=== PATIENT | female | born 1995 | race American Indian/Alaskan Native ===

== ENCOUNTER 2019-06-13 14:24 | Observation (INO) | payer OTHER ==
[2019-06-13] MEDS ORDERED: LACTATED RINGERS 1,000 ML IV ONE (14:56)
[2019-06-13 15:30] VITALS: BP 123/76
[2019-06-13] MEDS ORDERED: TERBUTALINE 1 MG/1 ML INJ SUB-Q ONE ×2 (16:00→17:00)
[2019-06-13 16:39] LABS: Basophils % (Auto) 0.3 % (0.0-1.8); Eosinophils # (Auto) 0.1 K/mm3 (0.0-0.4); Eosinophils % (Auto) 0.7 % (0.0-4.3); Hematocrit 31.6 % (30.3-42.9); Hemoglobin 10.7 gm/dl (10.1-14.3); Lymphocytes # (Auto) 2.9 K/mm3 (1.2-5.4); Lymphocytes % (Auto) 26.3 % (13.4-35.0); Mean Corpuscular HGB Conc 34 % (30-34); Mean Corpuscular Volume 95 fl (79-97); Monocytes % (Auto) 9.1 % (0.0-7.3); Platelet Count 164 K/mm3 (140-440); Red Blood Count 3.34 M/mm3 (3.65-5.03); Red Cell Distribution Width 13.2 % (13.2-15.2)
[2019-06-13 16:51] LABS: Alanine Aminotransferase 18 units/L (7-56); Albumin 3.3 g/dL (3.9-5); BUN/Creatinine Ratio 13; Blood Urea Nitrogen 8 mg/dL (7-17); Calcium 8.8 mg/dL (8.4-10.2); Hemolysis Index 30
[2019-06-13 17:57] LABS: Amphetamine Screen,Urine PRESUMPTIVE NEGATIVE; Bacteria,Urine 1+ /HPF (Negative); Benzodiazepines Screen,Urine PRESUMPTIVE NEGATIVE; Bilirubin,Urine NEG (Negative); Blood,Urine NEG (Negative); Cocaine Screen,Urine PRESUMPTIVE NEGATIVE; Color,Urine Straw (Yellow); Methadone Screen,Urine PRESUMPTIVE NEGATIVE; Opiate Screen,Urine PRESUMPTIVE NEGATIVE; Protein,Urine <15 mg/dL mg/dL (Negative); Urobilinogen,Urine < 2.0 mg/dL (<2.0)
--- NOTE | 2019-06-13 17:57 | Ultrasound Report ---
Limited OB Ultrasound 2. Biophysical profile HISTORY: labor. Rule out abruption TECHNIQUE: Grayscale and color Doppler imaging performed. COMPARISON: No recent comparison ultrasound is available FINDINGS: There is a single intrauterine gestation which is cephalic in presentation with anterior pl acenta. Heart rate is up to 163 bpm. Cervix measures approximately 1.7 cm in length and remains close d. The JAIRON is 18. A hypoechoic mass in the uterus most likely represents a fibroid and measures 9.5 c m in maximal dimension. On biophysical profile, the fetus received a score of 2 out of 2 for breathing movement, moveme nt, posture/tone, and JAIRON. Total score was 8 out of 8. On limited abdominal ultrasound, the gallbladder appears unremarkable with no cholelithiasis identifi ed. Visualized portions of the liver appear normal. IMPRESSION: 1. Single viable intrauterine gestation as above. 2. Normal BPP. 3. Large probable uterine fibroid. 4. Unremarkable gallbladder. Signer Name: Kamran Franco MD Signed: 06/13/2019 5:53 PM Workstation Name: [id number]
--- NOTE | 2019-06-13 18:02 | Ultrasound Report ---
ULTRASOUND RENAL INDICATION / CLINICAL INFORMATION: rule out kidney stones. COMPARISON: CT abdomen/pelvis from 11/18/2013 FINDINGS: RIGHT KIDNEY: Length = 12 cm. [normal > 9 cm] - Parenchymal Thickness = 1.9 cm. [normal > 1.5 cm] - Echogenicity: Increased - Hydronephrosis: Mild hydronephrosis. - Cyst or mass: No significant abnormality. - Stones: Nonobstructive calyceal stone in the midpole measuring 4 mm. LEFT KIDNEY: Length = 11 cm. [normal > 9 cm] - Parenchymal Thickness = 2.1 cm. [normal > 1.5 cm] - Echogenicity: Increased - Hydronephrosis: None. - Cyst or mass: 1.2 cm simple cyst in the upper pole. - Stones: None seen. URINARY BLADDER: Collapsed. FREE FLUID: None. ADDITIONAL FINDINGS: None. IMPRESSION: 1. Mild right-sided hydronephrosis and a nonobstructive calyceal stone in the midpole. 2. Both kidneys appear echogenic which is nonspecific but can be seen with medical renal disease. 3. Simple left renal cyst. Signer Name: Kamran Franco MD Signed: 06/13/2019 5:57 PM Workstation Name: [id number]
[2019-06-13 18:09] LABS: Cannabinoid Screen,Urine PRESUMPTIVE POSITIVE
[2019-06-13] MEDS ORDERED: NalbUPHINE 10 MG/1 ML INJ IV STA (18:40)
== END 2019-06-13 19:11 | disposition left against medical advice (07) ==
LOC: TRG 14:24 → LD 18:53
PROVIDERS: ADMIT Obstetrics & Gynecology; ATTEND Obstetrics & Gynecology
DX: O60.00 Preterm labor without delivery, unspecified trimester (principal); Z3A.00 Weeks of gestation of pregnancy not specified; Z87.891 Personal history of nicotine dependence; Z79.899 Other long term (current) drug therapy
CPT/HCPCS: 36415; 59025; 76705; 76770; 76819; 80053; 80307; 81001; 85025; 96372; G0378; J3105; J7120; 96360

== ENCOUNTER 2022-04-24 12:24 | Inpatient (IN) | payer OTHER ==
[2022-04-24 14:15] LABS: Mucus,Urine FEW /HPF
[2022-04-24 14:29] LABS: Amphetamine Screen,Urine Negative; Benzodiazepines Screen,Urine Negative; Cocaine Screen,Urine Negative; Methadone Screen,Urine Negative; Opiate Screen,Urine Negative
[2022-04-24 14:32] LABS: Color,Urine Straw (Yellow); RBC,Urine < 1.0 /HPF (0.0-6.0)
--- NOTE | 2022-04-24 14:34 | Emergency Department Report ---
HPI - General Chief Complaint: Psych PUI?: No Time Seen by Provider: 04/24/22 13:53 - HPI HPI: 26YO F presents for evaluation of SI. Pt states "a few hour ago, I took a handful of tylenol and drank some alcohol to try to end it all. I'm just tired of living. I want to , truly." The patient cannot verify how many tablets of Tylenol she took, whether or not they were regular or extra strength, and she cannot verify what time she took those tablets in addition to what time she took acetaminophen. 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 Pain 0-10 Per charge authorizer, when the pt was initially brought in, she attempted to leave the ER and was retrieved back to the ER by local PD. She states that upon her assessment of the patient, the patient would not answer questions and was very tearful. ED Past Medical Hx - Past Medical History Hx Hypertension: No Hx Diabetes: No Hx Asthma: Yes - Social History Smoking Status: Former Smoker Substance Use Type: Alcohol - Medications Home Medications: Home Medications Medication Instructions Recorded Confirmed Last Taken Type No Known Home Medications [No 11/18/13 11/18/13 Unknown History Reported Home Medications] ED Review of Systems ROS: Stated complaint: PSYCH EVAL,SUICIDE IDEALTION Other details as noted in HPI Comment: All other systems reviewed and negative Physical Exam - Physical Exam General: Gen: pt is well appearing, no acute distress, asleep but easily arousable HEENT: Normocephalic atraumatic pupils equally round and reactive to light extraocular muscles intact sclera anicteric Neck: Full range of motion, no midline spinal tenderness palpation, no JVD, no carotid bruits, no nuchal rigidity CVS: S1-S2 regular rate and rhythm with no gallops rubs or murmurs, chest wall nontender Pulmonary: Clear to auscultation bilaterally, no wheezes rales or rhonchi Abdomen: Soft nondistended nontender no guarding or rebound tenderness, no palpable deformities or step-offs, normal active bowel sounds, no hepatosplenomegaly, no pulsatile masses : Deferred Extremities: No cyanosis no clubbing no edema, intact distal peripheral pulses, Integumentary: Skin normal, no petechia no purpura no abscess no lacerations no evidence of trauma no evidence of infection Neuro: Patient is awake alert and oriented to person place time situation, mentating well, cranial nerves II through XII intact, no focal neurodeficits, sensation grossly tact Psych: Calm cooperative, flat affect, poor eye contact with this provider ED Course - Reevaluation(s) Reevaluation #1: 04/24/22 16:43 pt remains Aox43, mentating well; denies any symptoms Reevaluation #2: 04/24/22 17:34 Patient is comfortable appearing, moving all extremities, mentation unremarkable, - Consultations Consultation #1: 04/24/22 16:44 [place] [facility] called at this time ;Pt's labs have all resulted. I spoke with Gloria. She states she wanted to review the case with the on-call toxicology fellow. She returned my call and stated that given that the patient's AST is elevated and the time of ingestion in the [facility] are unknown, their protocol states that the patient should be started on N-Acetyl cystine. The recommended treatment protocol is listed below. She states that 2 hours prior to the completion of the entire course of treatment, the patient is to have repeat AST ALT acetaminophen and INR. Per her verbal report there is no benefit to rechecking the acetaminophen level prior to then. Goal of AST and ALT are to remain below 100 and not uptrending, and INR is to remain below 1.5 and not uptrending. Same is true for acetaminophen. Treatment protocol below 1. N-Acetyl Cystein, Bag #1: Loading dose of 150 mg/kg in 200 mL administered over 1 hour 2. N-Acetyl Cystein, Bag #2 50mg/kg in 1L administered over 4 hours 3. N-Acetyl Cystein, Bag #3: 100mg/kg in 1L over administered 16 hours If the patient develops changes in her mental status or uptrending of acetaminophen, AST, ALT, or INR levels, please call back poison control. Recommendations noted 04/24/22 17:34 ED Medical Decision Making - Lab Data Result diagrams: 04/24/22 15:12 04/24/22 15:12 - EKG Data -: EKG Interpreted by Me EKG shows normal: sinus rhythm Rate: normal - EKG Data When compared to previous EKG there are: no significant change - Radiology Data Radiology results: report reviewed - Medical Decision Making 26-year-old female presents for evaluation of suicidal ideation in the setting of suicide attempt status post consuming an unknown quantity of acetaminophen as well as alcohol, prior to arrival. Vital signs stable. Per staff, patient has attempted twice to run out of the emergency department. She was repeatedly brought back by police personnel. 1013 form signed. Mental health consult placed. Labs reviewed. Patient has elevated AST and acetaminophen level. Remainder of labs normal. Poison control consulted. Consult advises patient be started on treatment for acetaminophen overdose with N-Acetyl Cysteine, given the patient's elevated a ST and the unclear amount of time and quantity of acetaminophen she took.N-AC ordered. Case reviewed with admitting hospitalist, Dr. Nixon. The patient has been accepted by him for admission to the hospitalist service. Critical Care Time: Yes Critical care time in (mins) excluding proc time.: 30 Critical care attestation.: If time is entered above; I have spent that time in minutes in the direct care of this critically ill patient, excluding procedure time. ED Disposition Clinical Impression: Suicide attempt, Acetaminophen overdose, Alcohol intoxication Disposition: 09 ADMITTED INPATIENT Is pt being admited?: Yes Does the pt Need Aspirin: No Condition: Stable Referrals: PRIMARY CARE, [Primary Care Provider] - 3-5 Days
[2022-04-24 14:43] LABS: Cannabinoid Screen,Urine Positive
[2022-04-24] MEDS ORDERED: NALOXONE 0.4 MG/1 ML INJ ONE (14:56)
[2022-04-24] MEDS ORDERED: ONDANSETRON 4 MG/2 ML INJ ONE (14:56)
[2022-04-24 15:33] LABS: Hematocrit 43.1 % (30.3-42.9); Hemoglobin 14.5 gm/dl (10.1-14.3); Mean Corpuscular HGB Conc 34 % (30-34); Mean Corpuscular Volume 94 fl (79-97); Platelet Count 235 K/mm3 (140-440); Red Blood Count 4.57 M/mm3 (3.65-5.03); Red Cell Distribution Width 14.1 % (13.2-15.2)
[2022-04-24] MEDS ORDERED: ONDANSETRON 4 MG/2 ML INJ IV ONE ×3 (15:33→20:14)
[2022-04-24] MEDS ORDERED: FAMOTIDINE 20 MG/2 ML INJ IV ONE (15:33)
[2022-04-24 16:05] LABS: Alanine Aminotransferase 30 units/L (7-56); Albumin 4.7 g/dL (3.9-5); BUN/Creatinine Ratio 10; Blood Urea Nitrogen 8 mg/dL (7-17); Calcium 9.1 mg/dL (8.4-10.2); Hemolysis Index 9
[2022-04-24 16:45] LABS: Basophils % (Manual) 0 % (0.0-1.8); Total Cells Counted 100
[2022-04-24 16:50] LABS: Platelet Estimate Consistent w Auto; RBC Morphology Normal
[2022-04-24] MEDS ORDERED: WATER IV ONE ×3 (17:04→22:07)
[2022-04-24] MEDS ORDERED: ACETADOTE IV ONE ×3 (17:04→22:07)
[2022-04-24] MEDS ORDERED: DEXTROSE 5% IV ONE ×3 (17:04→22:07)
[2022-04-24 17:59] LABS: INR 0.92 (0.87-1.13)
[2022-04-24 18:00] LABS: Partial Thromboplastin Time 30.3 Sec. (24.2-36.6)
--- NOTE | 2022-04-24 20:43 | History and Physical Report ---
History of Present Illness Date of examination: 04/24/22 Date of admission: 04/24/2022 Chief complaint: And plan Tylenol overdose with suicidal ideation History of present illness: 26YO F presents for evaluation of SI. Pt states "a few hour ago, I took a handful of tylenol and drank some alcohol to try to end it all. I'm just tired of living. I want to , truly." The patient cannot verify how many tablets of Tylenol she took, whether or not they were regular or extra strength, and she cannot verify what time she took those tablets in addition to what time she took acetaminophen. 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 Pain 0-10 Per dry charge process attendant, when the pt was initially brought in, she attempted to leave the ER and was retrieved back to the ER by local PD. She states that upon her assessment of the patient, the patient would not answer questions and was very tearful. - Past Medical History Hx Asthma: Yes - Social History Smoking Status: Former Smoker Substance Use Type: Alcohol - Medications Home Medications: Home Medications Medication Instructions Recorded Confirmed Last Taken Type No Known Home Medications [No 11/18/13 11/18/13 Unknown History Reported Home Medications] Review of Systems ROS: Stated complaint: PSYCH EVAL,SUICIDE IDEALTION Other details as noted in HPI Comment: All other systems reviewed and negative Medications and Allergies Allergies Allergy/AdvReac Type Severity Reaction Status Date / Time kiwi Allergy Rash Verified 04/24/22 12:30 latex Allergy Rash Verified 04/24/22 12:30 Home Medications Medication Instructions Recorded Confirmed Last Taken Type No Known Home Medications [No 11/18/13 11/18/13 Unknown History Reported Home Medications] Active Meds: Active Medications Acetylcysteine 2,948 mg/ (Dextrose) 514.74 mls @ 125 mls/hr IV ONCE ONE Stop: 04/24/22 22:06 Acetylcysteine 5,896 mg/ (Dextrose) 1,029.48 mls @ 62.5 mls/hr IV ONCE ONE Stop: 04/25/22 14:06 Exam - Constitutional Vitals: Temp Pulse Resp BP Pulse Ox 99 F 81 16 114/86 96 04/24/22 14:30 04/24/22 14:30 04/24/22 14:30 04/24/22 14:30 04/24/22 14:30 Results - Labs CBC & Chem 7: 04/25/22 04:53 04/25/22 04:53 Labs: Laboratory Last Values WBC 7.0 K/mm3 (4.5-11.0) 04/24/22 15:12 RBC 4.57 M/mm3 (3.65-5.03) 04/24/22 15:12 Hgb 14.5 gm/dl (10.1-14.3) H 04/24/22 15:12 Hct 43.1 % (30.3-42.9) H 04/24/22 15:12 MCV 94 fl (79-97) 04/24/22 15:12 MCH 32 pg (28-32) 04/24/22 15:12 MCHC 34 % (30-34) 04/24/22 15:12 RDW 14.1 % (13.2-15.2) 04/24/22 15:12 Plt Count 235 K/mm3 (140-440) 04/24/22 15:12 Lymph % (Auto) Motorcycle Subassembly Repairer 04/24/22 15:12 Add Manual Diff Complete 04/24/22 15:12 Total Counted 100 04/24/22 15:12 Seg Neuts % (Manual) 34.0 % (40.0-70.0) L 04/24/22 15:12 Band Neutrophils % 0 % 04/24/22 15:12 Lymphocytes % (Manual) 59.0 % (13.4-35.0) H 04/24/22 15:12 Reactive Lymphs % (Man) 1.0 % 04/24/22 15:12 Monocytes % (Manual) 5.0 % (0.0-7.3) 04/24/22 15:12 Eosinophils % (Manual) 1.0 % (0.0-4.3) 04/24/22 15:12 Basophils % (Manual) 0 % (0.0-1.8) 04/24/22 15:12 Metamyelocytes % 0 % 04/24/22 15:12 Myelocytes % 0 % 04/24/22 15:12 Promyelocytes % 0 % 04/24/22 15:12 Blast Cells % 0 % 04/24/22 15:12 Nucleated RBC % Not Reportable 04/24/22 15:12 Seg Neutrophils # Man 2.4 K/mm3 (1.8-7.7) 04/24/22 15:12 Band Neutrophils # 0.0 K/mm3 04/24/22 15:12 Lymphocytes # (Manual) 4.1 K/mm3 (1.2-5.4) 04/24/22 15:12 Abs React Lymphs (Man) 0.1 K/mm3 04/24/22 15:12 Monocytes # (Manual) 0.4 K/mm3 (0.0-0.8) 04/24/22 15:12 Eosinophils # (Manual) 0.1 K/mm3 (0.0-0.4) 04/24/22 15:12 Basophils # (Manual) 0.0 K/mm3 (0.0-0.1) 04/24/22 15:12 Metamyelocytes # 0.0 K/mm3 04/24/22 15:12 Myelocytes # 0.0 K/mm3 04/24/22 15:12 Promyelocytes # 0.0 K/mm3 04/24/22 15:12 Blast Cells # 0.0 K/mm3 04/24/22 15:12 WBC Morphology Not Reportable 04/24/22 15:12 Hypersegmented Neuts Not Reportable 04/24/22 15:12 Hyposegmented Neuts Not Reportable 04/24/22 15:12 Hypogranular Neuts Not Reportable 04/24/22 15:12 Smudge Cells Not Reportable 04/24/22 15:12 Toxic Granulation Not Reportable 04/24/22 15:12 Toxic Vacuolation Not Reportable 04/24/22 15:12 Dohle Bodies Not Reportable 04/24/22 15:12 Pelger-Huet Anomaly Not Reportable 04/24/22 15:12 Saray Rods Not Reportable 04/24/22 15:12 Platelet Estimate Consistent w auto 04/24/22 15:12 Clumped Platelets Not Reportable 04/24/22 15:12 Plt Clumps, EDTA Not Reportable 04/24/22 15:12 Large Platelets Not Reportable 04/24/22 15:12 Giant Platelets Not Reportable 04/24/22 15:12 Platelet Satelliting Not Reportable 04/24/22 15:12 Plt Morphology Comment Not Reportable 04/24/22 15:12 RBC Morphology Normal 04/24/22 15:12 Dimorphic RBCs Not Reportable 04/24/22 15:12 Polychromasia Not Reportable 04/24/22 15:12 Hypochromasia Not Reportable 04/24/22 15:12 Poikilocytosis Not Reportable 04/24/22 15:12 Anisocytosis Not Reportable 04/24/22 15:12 Microcytosis Not Reportable 04/24/22 15:12 Macrocytosis Not Reportable 04/24/22 15:12 Spherocytes Not Reportable 04/24/22 15:12 Pappenheimer Bodies Not Reportable 04/24/22 15:12 Sickle Cells Not Reportable 04/24/22 15:12 Target Cells Not Reportable 04/24/22 15:12 Tear Drop Cells Not Reportable 04/24/22 15:12 Ovalocytes Not Reportable 04/24/22 15:12 Helmet Cells Not Reportable 04/24/22 15:12 Mcfarland-Sekiu Bodies Not Reportable 04/24/22 15:12 [place] Rings Not Reportable 04/24/22 15:12 Trudy Cells Not Reportable 04/24/22 15:12 Bite Cells Not Reportable 04/24/22 15:12 Crenated Cell Not Reportable 04/24/22 15:12 Elliptocytes Not Reportable 04/24/22 15:12 Acanthocytes (Spur) Not Reportable 04/24/22 15:12 Rouleaux Not Reportable 04/24/22 15:12 Hemoglobin C Crystals Not Reportable 04/24/22 15:12 Schistocytes Not Reportable 04/24/22 15:12 Malaria parasites Not Reportable 04/24/22 15:12 Conrado Bodies Not Reportable 04/24/22 15:12 Hem Pathologist Commnt No 04/24/22 15:12 PT 13.3 Sec. (12.2-14.9) 04/24/22 17:34 INR 0.92 (0.87-1.13) 04/24/22 17:34 APTT 30.3 Sec. (24.2-36.6) 04/24/22 17:34 Sodium 142 mmol/L (137-145) 04/24/22 15:12 Potassium 4.2 mmol/L (3.6-5.0) 04/24/22 15:12 Chloride 106.7 mmol/L (98-107) 04/24/22 15:12 Carbon Dioxide 23 mmol/L (22-30) 04/24/22 15:12 Anion Gap 17 mmol/L 04/24/22 15:12 BUN 8 mg/dL (7-17) 04/24/22 15:12 Creatinine 0.8 mg/dL (0.6-1.2) 04/24/22 15:12 Estimated GFR > 60 ml/min 04/24/22 15:12 BUN/Creatinine Ratio 10 % 04/24/22 15:12 Glucose 104 mg/dL (65-100) H 04/24/22 15:12 Calcium 9.1 mg/dL (8.4-10.2) 04/24/22 15:12 Total Bilirubin 0.40 mg/dL (0.1-1.2) 04/24/22 15:12 AST 62 units/L (5-40) H 04/24/22 15:12 ALT 30 units/L (7-56) 04/24/22 15:12 Alkaline Phosphatase 86 units/L (35-129) 04/24/22 15:12 Total Protein 7.7 g/dL (6.3-8.2) 04/24/22 15:12 Albumin 4.7 g/dL (3.9-5) 04/24/22 15:12 Albumin/Globulin Ratio 1.6 % 04/24/22 15:12 HCG, Qual Negative (Negative) 04/24/22 15:12 Urine Color Straw (Yellow) 04/24/22 12:47 Urine Turbidity Clear (Clear) 04/24/22 12:47 Specific Cut[place] (Man) 1.000 (1.003-1.030) L 04/24/22 12:47 Ur Protein (Man) Negative mg/dL (Negative) 04/24/22 12:47 Ur Ketones (Man) Negative (Negative) 04/24/22 12:47 Ur Nitrite (Man) Negative (Negative) 04/24/22 12:47 Urine Bilirubin (Man) Negative (Negative) 04/24/22 12:47 Leukocyte Esterase (Man) Negative (Negative) 04/24/22 12:47 Urine WBC (Auto) 1.0 /HPF (0.0-6.0) 04/24/22 12:47 Urine RBC (Auto) < 1.0 /HPF (0.0-6.0) 04/24/22 12:47 Urine RBC (Manual) Negative (Negative) 04/24/22 12:47 Urine Mucus Few /HPF 04/24/22 12:47 Salicylates < 0.3 mg/dL (2.8-20.0) L 04/24/22 15:12 Urine Opiates Screen Negative 04/24/22 12:47 Urine Methadone Screen Negative 04/24/22 12:47 Acetaminophen 5.0 ug/mL (10.0-30.0) L 04/24/22 15:12 Ur Barbiturates Screen Negative 04/24/22 12:47 Ur Phencyclidine Scrn Negative 04/24/22 12:47 Ur Amphetamines Screen Negative 04/24/22 12:47 U Benzodiazepines Scrn Negative 04/24/22 12:47 Urine Cocaine Screen Negative 04/24/22 12:47 U Marijuana (THC) Screen Positive 04/24/22 12:47 Drugs of Abuse Note Disclamer 04/24/22 12:47 Plasma/Serum Alcohol 0.32 % (0-0.07) H 04/24/22 15:12 Assessment and Plan Advance Directives: Yes (Full code) VTE prophylaxis?: Chemical Plan of care discussed with patient/family: Yes - Patient Problems (1) Acetaminophen overdose Current Visit: Yes Status: Acute Qualifiers: Encounter type: initial encounter Plan to address problem: Patient states she took a bunch of Tylenol pills. Unable to give a number and dosage Tylenol level in the ER is near normal Antidote was given but may not be necessary We will keep checking thyroid levels Communication with Poison control obtained (2) Suicide attempt Current Visit: Yes Status: Acute Plan to address problem: Mental health consult requested (3) Alcohol intoxication Current Visit: Yes Status: Acute Qualifiers: Complication of substance-induced condition: uncomplicated Qualified Code(s): F10.920 - Alcohol use, unspecified with intoxication, uncomplicated Plan to address problem: Initiated on IV l fluids and CIWA protoco IV fluids IV Protonix (4) Acute gastritis Current Visit: Yes Status: Acute Qualifiers: Gastritis type: alcoholic Plan to address problem: IV Protonix for now (5) Depression Current Visit: Yes Status: Acute Plan to address problem: Severe depression Will defer to mental health/psychiatry for recommendations regarding antidepressants and management of depression (6) Transaminitis Current Visit: Yes Status: Acute Plan to address problem: Mild Check hepatitis profile (7) DVT prophylaxis Current Visit: Yes Status: Acute Plan to address problem: Heparin and GI prophylaxis (8) Advance care planning Current Visit: Yes Status: Acute Plan to address problem: Disease education conducted care plan discussed prognosis discussed and diagnosis this test. Patient is full code. Patient acknowledged understanding with care plan. +30 minutes.
[2022-04-24] MEDS ORDERED: oxyCODONE /ACETAMINOPHEN 5-325MG TAB PO PRN (20:44)
[2022-04-24] MEDS ORDERED: METOCLOPRAMIDE 10 MG/2 ML INJ IV PRN (20:44)
[2022-04-24] MEDS ORDERED: IBUPROFEN 600 MG TAB PO PRN (20:44)
[2022-04-24] MEDS ORDERED: ONDANSETRON 4 MG/2 ML INJ IV PRN ×2 (20:44→20:56)
[2022-04-24] MEDS ORDERED: ACETAMINOPHEN 325 MG TAB PO PRN (20:56)
[2022-04-24] MEDS ORDERED: D5W/0.9% NACL 1,000 ML IV SCH (21:00)
[2022-04-24] MEDS ORDERED: LORazepam 2 MG/ML VIAL IV PRN (21:03)
[2022-04-24] MEDS: HEPARIN 5,000 UNIT/1 ML VIAL SUB-Q SCH (23:43)
[2022-04-25 06:04] LABS: Basophils % (Auto) 0.5 % (0.0-1.8); Eosinophils % (Auto) 0.6 % (0.0-4.3); Hematocrit 40.4 % (30.3-42.9); Hemoglobin 13.4 gm/dl (10.1-14.3); Lymphocytes # (Auto) 2.6 K/mm3 (1.2-5.4); Mean Corpuscular HGB Conc 33 % (30-34); Mean Corpuscular Volume 95 fl (79-97); Monocytes # (Auto) 0.7 K/mm3 (0.0-0.8); Platelet Count 196 K/mm3 (140-440); Red Blood Count 4.27 M/mm3 (3.65-5.03); Red Cell Distribution Width 14.1 % (13.2-15.2)
[2022-04-25 06:23] LABS: Alanine Aminotransferase 27 units/L (7-56); Albumin 4.1 g/dL (3.9-5); Blood Urea Nitrogen 6 mg/dL (7-17); Calcium 8.4 mg/dL (8.4-10.2); Hemolysis Index 16
[2022-04-25 06:28] LABS: BUN/Creatinine Ratio 9
--- NOTE | 2022-04-25 10:39 | Electrocardiograph Report ---
[facility] Test Date: 2022-04-24 Test Time: 20:23:11 Pat Name: RAJI DOYLE Department: Room: A487 1 Gender: F Firewall Administrator: ISELA : 1995 Requested By: SANGEETA LANDERS Order Number: [id number] Reading MD: Jacobo Almazan Measurements Intervals [place] Rate: 61 P: 52 VT: 155 QRS: 35 QRSD: 110 T: 50 QT: 430 QTc: 434 Interpretive Statements Sinus arrhythmia No previous ECG available for comparison Electronically Signed On 04-25-2022 10:39:06 EDT by Jacobo Almazan
[2022-04-25] MEDS: HEPARIN 5,000 UNIT/1 ML VIAL SUB-Q SCH ×2 (11:29→21:45)
--- NOTE | 2022-04-25 11:46 | Consultation ---
History of Present Illness - Reason for Consult Consult date: 04/25/22 Reason for consult: suicide attempt - Chief Complaint Chief complaint: And plan Tylenol overdose with suicidal ideation - History of Present Psychiatric Illness PER NOTE: 26YO F presents for evaluation of SI. Pt states "a few hour ago, I took a handful of tylenol and drank some alcohol to try to end it all. I'm just tired of living. I want to , truly." The patient cannot verify how many tablets of Tylenol she took, whether or not they were regular or extra strength, and she cannot verify what time she took those tablets in addition to what time she took acetaminophen. 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 Pain 0-10 Per chargemaster analyst, when the pt was initially brought in, she attempted to leave the ER and was retrieved back to the ER by local PD. She states that upon her assessment of the patient, the patient would not answer questions and was very tearful. Patient is a 26 year old female with history of bipolar who was consulted for intentional overdose in context of suicide attempt. The patient was seen today. Patient was alert and oriented x3 but was recently administered ativan. The patient reports intentionally overdose on a handful of tylenol with alcohol. Patient reports feeling stressors of being in school, working, and the anniversary of her brother and sister's committing suicide last year. Patient has been prescribed lamictal and seroquel but has been non-compliant with medication. The patient denies any current suicidal thoughts and denies hallucinations. PAST PSYCHIATRIC HISTORY: Diagnoses: Bipolar Suicide attempts or Self-harm behavior: Yes Prior psychiatric hospitalizations: Yes Substance Abuse history: Alcohol Previous psychiatric medications tried: Yes Outpatient treatment: Yes PAST MEDICAL HISTORY: Total hysterectomy 2020 Family Psychiatric History: None reported SOCIAL HISTORY Marital Status: Living Arrangements: Alone Employment Status: Employed Access to guns/weapons: Denies Education: Some college History of Abuse: No Legal History: Denies REVIEW OF SYSTEMS Constitutional: Negative for weight loss ENT: Negative for stridor Respiratory: Negative for cough or hemoptysis All other systems reviewed and are negative MENTAL STATUS General Appearance and Behavior: age appropriate, poor eye contact, cooperative, Cooperation: Cooperative Psychomotor Behavior: within normal limits Mood: Depressed Affect and affective range: Congruent with stated mood Thought Process: goal directed Thought Content: reality oriented Speech: Low volume and slow rate and rhythm Suicidal Ideation: Denies SI Homicidal Ideation: Denies HI Hallucinations: Denies Impulse Control: intact Insight and Judgment: Limited Memory: Normal Attention: Attentive Orientation: alert and oriented x3 Assessment Bipolar, current episode depressive type Treatment Plan 1013 Start home meds: seroquel 25 mg PO TID, lamictal 25 mg PO qd The patient is to get first dose of meds prior to leaving. Benefits and possible SE were explained to patient. She verbalizes understanding. Risks, benefits and alternatives of medications discussed with the patient, questions answered and consent obtained from patient. PSYCHOTHERAPY: Supportive psychotherapy provided MEDICAL: Per primary team DELIRIUM PRECAUTIONS: Please re-orient patient frequently, keep lights on during the day, and minimize benzodiazepines and opiates as these medications could worsen patient's confusion. DOLL WIGS HACKLER: Defer to primary DISPOSITION: Recommend acute inpatient psychiatric hospitalization at this time. FOLLOW-UP: Will follow. Thank you for the consult. Please contact with any questions and/or concerns Case discussed with Dr. Larson who agrees with current disposition Medications and Allergies Allergies Allergy/AdvReac Type Severity Reaction Status Date / Time kiwi Allergy Rash Verified 04/24/22 12:30 latex Allergy Rash Verified 04/24/22 12:30 Home Medications Medication Instructions Recorded Confirmed Last Taken Type No Known Home Medications [No 11/18/13 11/18/13 Unknown History Reported Home Medications] Active Meds: Active Medications Heparin Sodium (Porcine) (Heparin 5,000 Unit/1 Ml Vial) 5,000 unit SUB-Q Q12HR CASSANDRA Last Admin: 04/25/22 11:29 Dose: Not Given Acetylcysteine 5,896 mg/ (Dextrose) 1,029.48 mls @ 62.5 mls/hr IV ONCE ONE Stop: 04/25/22 14:06 Last Admin: 04/25/22 03:21 Dose: 62.5 mls/hr Dextrose/Sodium Chloride (D5ns) 1,000 mls @ 100 mls/hr IV DIRECT CASSANDRA Ibuprofen (Ibuprofen 600 Mg Tab) 600 mg PO Q6H PRN PRN Reason: Pain, Mild (1-3) Lorazepam (Lorazepam 2 Mg/Ml Vial) 2 mg IV Q1H PRN PRN Reason: CIWA-Ar 8-15 Last Admin: 04/25/22 10:22 Dose: 2 mg Metoclopramide HCl (Metoclopramide 10 Mg/2 Ml Inj) 10 mg IV Q6H PRN PRN Reason: Nausea And Vomiting Last Admin: 04/25/22 09:57 Dose: 10 mg Ondansetron HCl (Ondansetron 4 Mg/2 Ml Inj) 4 mg IV Q8H PRN PRN Reason: Nausea And Vomiting Sodium Chloride (Sodium Chloride 0.9% 10 Ml Flush Syringe) 10 ml IV BID CASSANDRA Last Admin: 04/25/22 11:29 Dose: 10 ml Sodium Chloride (Sodium Chloride 0.9% 10 Ml Flush Syringe) 10 ml IV PRN PRN PRN Reason: LINE FLUSH Mental Status Exam - Vital signs Last Vital Signs Temp 97.8 F 04/25/22 10:31 Pulse 53 L 04/25/22 04:33 Resp 16 04/25/22 10:31 BP 143/78 04/25/22 10:31 Pulse Ox 100 04/25/22 04:33 Results Result Diagrams: 04/25/22 04:53 04/25/22 04:53 Abnormal lab results 04/24/22 04/24/22 04/24/22 Range/Units 12:47 15:12 15:12 Hgb (10.1-14.3) gm/dl Hct (30.3-42.9) % Lymph % (Auto) (13.4-35.0) % [place] % (Auto) (0.0-7.3) % Seg Neuts % (Manual) (40.0-70.0) % Lymphocytes % (Manual) (13.4-35.0) % BUN (7-17) mg/dL Glucose 104 H (65-100) mg/dL AST 62 H (5-40) units/L Specific [place] (Man) 1.000 L (1.003-1.030) Salicylates < 0.3 L (2.8-20.0) mg/dL Acetaminophen (10.0-30.0) ug/mL Plasma/Serum Alcohol (0-0.07) % 04/24/22 04/24/22 04/24/22 Range/Units 15:12 15:12 15:12 Hgb 14.5 H (10.1-14.3) gm/dl Hct 43.1 H (30.3-42.9) % Lymph % (Auto) (13.4-35.0) % [place] % (Auto) (0.0-7.3) % Seg Neuts % (Manual) 34.0 L (40.0-70.0) % Lymphocytes % (Manual) 59.0 H (13.4-35.0) % BUN (7-17) mg/dL Glucose (65-100) mg/dL AST (5-40) units/L Specific [place] (Man) (1.003-1.030) Salicylates (2.8-20.0) mg/dL Acetaminophen 5.0 L (10.0-30.0) ug/mL Plasma/Serum Alcohol 0.32 H (0-0.07) % 04/24/22 04/25/22 04/25/22 Range/Units 23:11 04:53 04:53 Hgb (10.1-14.3) gm/dl Hct (30.3-42.9) % Lymph % (Auto) 36.0 H (13.4-35.0) % [place] % (Auto) 9.0 H (0.0-7.3) % Seg Neuts % (Manual) (40.0-70.0) % Lymphocytes % (Manual) (13.4-35.0) % BUN (7-17) mg/dL Glucose (65-100) mg/dL AST (5-40) units/L Specific [place] (Man) (1.003-1.030) Salicylates (2.8-20.0) mg/dL Acetaminophen 5.0 L 5.0 L (10.0-30.0) ug/mL Plasma/Serum Alcohol (0-0.07) % 04/25/22 04/25/22 Range/Units 04:53 07:18 Hgb (10.1-14.3) gm/dl Hct (30.3-42.9) % Lymph % (Auto) (13.4-35.0) % [place] % (Auto) (0.0-7.3) % Seg Neuts % (Manual) (40.0-70.0) % Lymphocytes % (Manual) (13.4-35.0) % BUN 6 L (7-17) mg/dL Glucose (65-100) mg/dL AST 54 H (5-40) units/L Specific [place] (Man) (1.003-1.030) Salicylates (2.8-20.0) mg/dL Acetaminophen 5.0 L (10.0-30.0) ug/mL Plasma/Serum Alcohol (0-0.07) % All other labs normal.
[2022-04-25] MEDS: QUEtiapine 25 MG TAB PO SCH ×2 (16:14→21:45)
[2022-04-25] MEDS: lamoTRIgine 25 MG TAB PO SCH (16:14)
[2022-04-25 23:34] LABS: Alanine Aminotransferase 31 units/L (7-56); BUN/Creatinine Ratio 8; Blood Urea Nitrogen 7 mg/dL (7-17); Calcium 8.9 mg/dL (8.4-10.2); Hemolysis Index 8
[2022-04-26 06:24] LABS: Basophils % (Auto) 0.6 % (0.0-1.8); Eosinophils # (Auto) 0.1 K/mm3 (0.0-0.4); Eosinophils % (Auto) 1.6 % (0.0-4.3); Hematocrit 38.9 % (30.3-42.9); Hemoglobin 12.7 gm/dl (10.1-14.3); Lymphocytes # (Auto) 1.7 K/mm3 (1.2-5.4); Lymphocytes % (Auto) 40.7 % (13.4-35.0); Mean Corpuscular HGB Conc 33 % (30-34); Mean Corpuscular Volume 96 fl (79-97); Monocytes # (Auto) 0.5 K/mm3 (0.0-0.8); Monocytes % (Auto) 11.3 % (0.0-7.3); Platelet Count 172 K/mm3 (140-440); Red Blood Count 4.06 M/mm3 (3.65-5.03); Red Cell Distribution Width 13.4 % (13.2-15.2)
[2022-04-26 06:31] LABS: INR 0.98 (0.87-1.13)
[2022-04-26 06:32] LABS: Partial Thromboplastin Time 30.6 Sec. (24.2-36.6)
[2022-04-26 06:36] LABS: Alanine Aminotransferase 33 units/L (7-56); Blood Urea Nitrogen 6 mg/dL (7-17); Calcium 8.9 mg/dL (8.4-10.2); Hemolysis Index 17
[2022-04-26 06:38] LABS: BUN/Creatinine Ratio 9
--- NOTE | 2022-04-26 10:51 | Electrocardiograph Report ---
[facility] Test Date: 2022-04-25 Test Time: 07:37:30 Pat Name: RAJI DOYLE Department: Room: A487 1 Gender: F Reeling Machine Operator: MAURICE : 1995 Requested By: MC WILLINGHAM Order Number: [id number] Reading MD: Jacobo Almazan Measurements Intervals [place] Rate: 53 P: 52 AL: 142 QRS: 17 QRSD: 102 T: 32 QT: 462 QTc: 435 Interpretive Statements Sinus rhythm Compared to ECG 04/24/2022 20:23:11 Sinus arrhythmia no longer present Electronically Signed On 04-26-2022 10:50:58 EDT by Jacobo Almazan
--- NOTE | 2022-04-26 11:38 | Progress Note ---
Assessment and Plan - Patient Problems (1) Acetaminophen overdose Current Visit: Yes Status: Acute Qualifiers: Encounter type: initial encounter Plan to address problem: Patient states she took a bunch of Tylenol pills. Unable to give a number and dosage Tylenol level in the ER is near normal Antidote was given but may not be necessary We will keep checking thyroid levels Communication with Poison control obtained (2) Suicide attempt Current Visit: Yes Status: Acute Plan to address problem: Mental health consult requested (3) Alcohol intoxication Current Visit: Yes Status: Acute Qualifiers: Complication of substance-induced condition: uncomplicated Qualified Code(s): F10.920 - Alcohol use, unspecified with intoxication, uncomplicated Plan to address problem: Initiated on IV l fluids and CIWA protoco IV fluids IV Protonix (4) Acute gastritis Current Visit: Yes Status: Acute Qualifiers: Gastritis type: alcoholic Plan to address problem: IV Protonix for now (5) Depression Current Visit: Yes Status: Acute Plan to address problem: Severe depression Will defer to mental health/psychiatry for recommendations regarding antidepressants and management of depression (6) Transaminitis Current Visit: Yes Status: Acute Plan to address problem: Mild Check hepatitis profile (7) DVT prophylaxis Current Visit: Yes Status: Acute Plan to address problem: Heparin and GI prophylaxis (8) Advance care planning Current Visit: Yes Status: Acute Plan to address problem: Disease education conducted care plan discussed prognosis discussed and diagnosis this test. Patient is full code. Patient acknowledged understanding with care plan. +30 minutes. Subjective Date of service: 04/25/22 Objective - Constitutional Vitals: Vital Signs - 12hr 04/26/22 04/26/22 04/26/22 00:13 04:53 08:56 Temperature 98.6 F 98.5 F 98.2 F Pulse Rate 67 49 L 94 H Respiratory 20 20 15 Rate Blood Pressure 86/49 84/49 115/76 O2 Sat by Pulse 99 96 98 Oximetry General appearance: Present: no acute distress, well-nourished - EENT Eyes: PERRL, EOM intact ENT: hearing intact, clear oral mucosa Ears: bilateral: normal - Neck Neck: supple, normal ROM - Respiratory Respiratory effort: normal Respiratory: bilateral: CTA - Breasts Breasts: normal - Cardiovascular Rhythm: regular Heart Sounds: Present: S1 & S2. Absent: gallop, rub Extremities: pulses intact, No edema, normal color, Full ROM - Gastrointestinal General gastrointestinal: Present: soft, non-tender, non-distended, normal bowel sounds - Genitourinary Female genitourinary: normal - Integumentary Integumentary: clear, warm, dry - Musculoskeletal Musculoskeletal: 1, strength equal bilaterally - Neurologic Neurologic: moves all extremities - Psychiatric Psychiatric: memory intact, appropriate mood/affect, intact judgment & insight - Labs CBC & Chem 7: 04/26/22 06:03 04/26/22 06:03 Labs: Abnormal lab results 04/25/22 04/25/22 04/26/22 Range/Units 12:57 22:39 06:03 WBC 4.2 L (4.5-11.0) K/mm3 Lymph % (Auto) 40.7 H (13.4-35.0) % [place] % (Auto) 11.3 H (0.0-7.3) % BUN (7-17) mg/dL Glucose 104 H (65-100) mg/dL Total Bilirubin 1.60 H (0.1-1.2) mg/dL AST 79 H (5-40) units/L Acetaminophen 5.0 L (10.0-30.0) ug/mL 04/26/22 Range/Units 06:03 WBC (4.5-11.0) K/mm3 Lymph % (Auto) (13.4-35.0) % [place] % (Auto) (0.0-7.3) % BUN 6 L (7-17) mg/dL Glucose (65-100) mg/dL Total Bilirubin 1.60 H (0.1-1.2) mg/dL AST 80 H (5-40) units/L Acetaminophen (10.0-30.0) ug/mL
[2022-04-26] MEDS: HEPARIN 5,000 UNIT/1 ML VIAL SUB-Q SCH ×2 (11:44→22:37)
[2022-04-26] MEDS: QUEtiapine 25 MG TAB PO SCH ×3 (11:44→22:37)
--- NOTE | 2022-04-26 11:44 | Event Note ---
Date: 04/26/22 Patient is medically cleared for discharge if psych clears
[2022-04-26] MEDS: lamoTRIgine 25 MG TAB PO SCH (11:45)
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
--- NOTE | 2022-04-26 20:08 | Progress Note ---
Assessment and Plan - Patient Problems (1) Acetaminophen overdose Current Visit: Yes Status: Acute Qualifiers: Encounter type: initial encounter Plan to address problem: Patient states she took a bunch of Tylenol pills. Unable to give a number and dosage Tylenol level in the ER is near normal Antidote was given but may not be necessary We will keep checking thyroid levels Communication with Poison control obtained (2) Suicide attempt Current Visit: Yes Status: Acute Plan to address problem: Mental health consult requested (3) Alcohol intoxication Current Visit: Yes Status: Acute Qualifiers: Complication of substance-induced condition: uncomplicated Qualified Code(s): F10.920 - Alcohol use, unspecified with intoxication, uncomplicated (4) Acute gastritis Current Visit: Yes Status: Acute Qualifiers: Gastritis type: alcoholic (5) Depression Current Visit: Yes Status: Acute (6) Transaminitis Current Visit: Yes Status: Acute (7) DVT prophylaxis Current Visit: Yes Status: Acute (8) Advance care planning Current Visit: Yes Status: Acute Subjective Date of service: 04/26/22 Objective - Constitutional Vitals: Vital Signs - 12hr 04/26/22 04/26/22 04/26/22 08:56 09:00 12:31 Temperature 98.2 F 98.8 F Pulse Rate 94 H 61 82 Respiratory 15 20 Rate Blood Pressure 115/76 117/90 O2 Sat by Pulse 98 99 Oximetry 04/26/22 04/26/22 16:18 16:20 Temperature 99.0 F Pulse Rate 77 89 Respiratory 18 Rate Blood Pressure 110/77 O2 Sat by Pulse 100 99 Oximetry General appearance: Present: no acute distress, well-nourished - EENT Eyes: PERRL, EOM intact ENT: hearing intact, clear oral mucosa Ears: bilateral: normal - Neck Neck: supple, normal ROM - Respiratory Respiratory effort: normal Respiratory: bilateral: CTA - Breasts Breasts: normal - Cardiovascular Rhythm: regular Heart Sounds: Present: S1 & S2. Absent: gallop, rub Extremities: pulses intact, No edema, normal color, Full ROM - Gastrointestinal General gastrointestinal: Present: soft, non-tender, non-distended, normal bowel sounds - Genitourinary Female genitourinary: normal - Integumentary Integumentary: clear, warm, dry - Musculoskeletal Musculoskeletal: 1, strength equal bilaterally - Neurologic Neurologic: moves all extremities - Psychiatric Psychiatric: memory intact, appropriate mood/affect, intact judgment & insight - Labs CBC & Chem 7: 04/26/22 06:03 04/26/22 06:03 Labs: Abnormal lab results 04/25/22 04/26/22 04/26/22 Range/Units 22:39 06:03 06:03 WBC 4.2 L (4.5-11.0) K/mm3 Lymph % (Auto) 40.7 H (13.4-35.0) % [place] % (Auto) 11.3 H (0.0-7.3) % BUN 6 L (7-17) mg/dL Glucose 104 H (65-100) mg/dL Total Bilirubin 1.60 H 1.60 H (0.1-1.2) mg/dL AST 79 H 80 H (5-40) units/L
[2022-04-27 08:44] VITALS: BP 106/81
[2022-04-27] MEDS: lamoTRIgine 25 MG TAB PO SCH (10:09)
[2022-04-27] MEDS: HEPARIN 5,000 UNIT/1 ML VIAL SUB-Q SCH (10:09)
[2022-04-27] MEDS: QUEtiapine 25 MG TAB PO SCH ×2 (10:09→13:13)
--- NOTE | 2022-04-27 10:54 | Progress Note ---
Subjective - Reason for Consult Consult date: 04/27/22 Reason for consult: depression - Chief Complaint Chief complaint: The patient was seen today. She is calm and cooperative. The patient is lucid. She is optimist about her future. She says before she had convinced herself that she did not need the meds. She says "I was off them for a long time." She says "since I've been here I've had time to think and I know I need my meds." The patient says she has a clear plan to maintain her mental wellness. She says "I will get my mentors more involved, my kids, father, my ." She says "I know now what I have to do. If I have to be on meds, I will take them everyday." The patient says she plans to get into grief counseling and regular therapy. She says "my kids need me, but more than that I need myself." She says "I need you to know, because I know you want to do the right thing. But I'm not saying this to go home. I'm saying this because I now realize how important it is for me to maintain my mental health." She denies SI/HI. She says "I will never get to that point again." She denies hallucinations of any kind. The patient give me permission to speak with her kids father whom she says lives across the street from her. He says he will support the patient and makes sure she does her therapy. He says he feels that the patient is not a threat to herself. Will rescind 1013 and clear the patient from psych services. REVIEW OF SYSTEMS Constitutional: Negative for weight loss ENT: Negative for stridor Respiratory: Negative for cough or hemoptysis All other systems reviewed and are negative MENTAL STATUS General Appearance and Behavior: age appropriate, good eye contact, cooperative, Cooperation: Cooperative Psychomotor Behavior: within normal limits Mood: better Affect and affective range: Congruent with stated mood Thought Process: goal directed Thought Content: reality oriented, optimism Speech: Low volume and slow rate and rhythm Suicidal Ideation: Denies Homicidal Ideation: Denies HI Hallucinations: Denies Impulse Control: intact Insight and Judgment: Good Memory: Normal Attention: Attentive Orientation: alert and oriented x3 Assessment Bipolar, current episode depressive type Treatment Plan d/c 1013 Seroquel 25 mg PO TID lamictal 25 mg PO qd The patient is to get first dose of meds prior to leaving. Benefits and possible SE were explained to patient. She verbalizes understanding. Risks, benefits and alternatives of medications discussed with the patient, questions answered and consent obtained from patient. PSYCHOTHERAPY: Supportive psychotherapy provided MEDICAL: Per primary team DELIRIUM PRECAUTIONS: Please re-orient patient frequently, keep lights on during the day, and minimize benzodiazepines and opiates as these medications could worsen patient's confusion. ON AIR DIRECTOR: Defer to primary DISPOSITION: Do not recommend acute inpatient psychiatric hospitalization at this time. The patient and her kids father understand that if any SI/HI or any fear of endangerment arise they are to seek immediate assistance. The him assistant to give the patient all necessary resources to maintain her mental wellness, including CBT, and grief counseling She is to follow up with outpatient psych in 7 to 14 days upon discharge from the hospital FOLLOW-UP: Will sign off. Thanks Thank you for the consult. Please contact with any questions and/or concerns Case discussed with Dr. Larson who agrees with current disposition Mental Status Exam - Vital signs Last Vital Signs Temp 98.6 F 04/27/22 08:38 Pulse 79 04/27/22 08:38 Resp 18 04/27/22 08:38 BP 106/81 04/27/22 08:38 Pulse Ox 100 04/27/22 08:38
--- NOTE | 2022-04-27 12:44 | Discharge Summary ---
Providers - Providers Date of Admission: 04/24/22 20:44 Date of discharge: 04/27/22 Attending physician: MC WILLINGHAM 04/24/22 17:08 Consult to Mental Health [CONS] Stat Reason For Exam: Intentional overdose in the setting of suicide att 04/24/22 21:04 Consult to Mental Health [CONS] Routine Reason For Exam: Suicide attempt, depression Primary care physician: MARINE OILER Hospitalization Condition: Stable Disposition: 01 HOME / SELF CARE / HOMELESS - Discharge Diagnoses (1) Acetaminophen overdose Status: Acute Qualifiers: Encounter type: initial encounter (2) Suicide attempt Status: Acute (3) Alcohol intoxication Status: Acute Qualifiers: Complication of substance-induced condition: uncomplicated Qualified Code(s): F10.920 - Alcohol use, unspecified with intoxication, uncomplicated (4) Acute gastritis Status: Acute Qualifiers: Gastritis type: alcoholic (5) Depression Status: Acute (6) Transaminitis Status: Acute (7) DVT prophylaxis Status: Acute (8) Advance care planning Status: Acute Exam - Constitutional Vitals: Temp Pulse Resp BP Pulse Ox 98.6 F 79 18 106/81 100 04/27/22 08:38 04/27/22 08:38 04/27/22 08:38 04/27/22 08:38 04/27/22 08:38 Plan Follow up with: LADAN SEGURA MD [Primary Care Provider] - 3-5 Days EPIFANIO MUÑOZ MD [Referring] - 7 Days Prescriptions: lamoTRIgine [LaMICtal] 25 mg PO QDAY #30 tab QUEtiapine [SEROquel] 25 mg PO TID #90 tablet
[2022-04-27 12:49] LABS: Basophils % (Auto) 0.6 % (0.0-1.8); Eosinophils % (Auto) 0.9 % (0.0-4.3); Hematocrit 42.8 % (30.3-42.9); Hemoglobin 14.3 gm/dl (10.1-14.3); Lymphocytes # (Auto) 1.8 K/mm3 (1.2-5.4); Lymphocytes % (Auto) 42.2 % (13.4-35.0); Mean Corpuscular HGB Conc 33 % (30-34); Mean Corpuscular Volume 95 fl (79-97); Monocytes # (Auto) 0.4 K/mm3 (0.0-0.8); Monocytes % (Auto) 8.8 % (0.0-7.3); Platelet Count 181 K/mm3 (140-440); Red Cell Distribution Width 13.2 % (13.2-15.2)
[2022-04-27 13:05] LABS: Alanine Aminotransferase 31 units/L (7-56); Albumin 4.6 g/dL (3.9-5); Blood Urea Nitrogen 6 mg/dL (7-17); Calcium 9.5 mg/dL (8.4-10.2); Hemolysis Index 5
[2022-04-27 13:06] LABS: BUN/Creatinine Ratio 9
== END 2022-04-27 13:54 | disposition home or self-care (01) | DRG 918 ==
LOC: ED 12:24 → 4A 20:44
PROVIDERS: ADMIT Internal Medicine; ATTEND Internal Medicine
PROC: 06HY33Z Insertion of Infusion Device into Lower Vein, Percutaneous Approach (ICD-10-PCS; principal; 2022-04-24)
DX: T39.1X2A Poisoning by 4-Aminophenol derivatives, intentional self-harm, initial encounter (principal); K29.00 Acute gastritis without bleeding; Z20.822 Contact with and (suspected) exposure to COVID-19; J45.909 Unspecified asthma, uncomplicated; Y92.89 Other specified places as the place of occurrence of the external cause; F31.9 Bipolar disorder, unspecified; F10.129 Alcohol abuse with intoxication, unspecified; Y90.9 Presence of alcohol in blood, level not specified; Z87.891 Personal history of nicotine dependence; Z91.040 Latex allergy status; Z91.018 Allergy to other foods
CPT/HCPCS: 36415; 80053; 80307; 80320; 81001; 84703; 85007; 85025; 85610; 85730; 93005; 96365; 96375; 96376; 99291; G0378; J3490; J7060; G0480; J0132; J1644; J2060; J2310; J2405; J2765; J7070; U0003